=== PATIENT | female | born 1950 | race Caucasian/White ===

== ENCOUNTER 2016-11-12 06:39 | Day surgery (SDC) | payer OTHER ==
[~2016-11-12] VITALS: Ht 147.3 cm; Wt 68.2 kg
[~2016-11-12 06:39] MED LIST: SODIUM CHLORIDE 0.9% 1,000 ML IV ONE
[2016-11-12] MEDS ORDERED: SODIUM CHLORIDE 0.9% 1,000 ML IV ONE (07:06)
[2016-11-12] MEDS ORDERED: OMEP20 PO (07:38)
[2016-11-12] MEDS ORDERED: METHI5 PO (07:38)
[2016-11-12] MEDS ORDERED: ACET-48 PO (07:38)
[2016-11-12] MEDS ORDERED: LACT10SO8 PO (07:38)
[2016-11-12] MEDS ORDERED: FLUT16H NASAL (07:38)
[2016-11-12] MEDS ORDERED: BUDE10.2 IH (07:38)
[2016-11-12] MEDS ORDERED: MONT10TA21 PO (07:38)
[2016-11-12] MEDS ORDERED: IPRA4AER IH (07:38)
[2016-11-12] MEDS ORDERED: FentaNYL CITRATE-PF 100 MCG/2 ML VIAL ONE (07:46)
[2016-11-12] MEDS ORDERED: MIDAZOLAM HCL 2 MG/2 ML VIAL ONE (07:46)
[2016-11-12] MEDS ORDERED: MethylPREDNISolone SOD SUCC 125 MG/2 ML VIAL IVP ONE (08:45)
[2016-11-12] MEDS ORDERED: MethylPREDNISolone SOD SUCC 125 MG/2 ML VIAL ONE (09:14)
[2016-11-12] MEDS ORDERED: LIDOCAINE HCL 4% 50 ML SOLUTION TP ONE (16:45)
[2016-11-12] MEDS ORDERED: LIDOCAINE HCL 2% 30 ML JELLY TP ONE (16:45)
[2016-11-12] MEDS ORDERED: BENZOCAINE 20% 50 MCG/SPRAY 57 GM TP ONE (16:45)
[2016-11-12] MEDS ORDERED: OXYGEN THERAPY IH SCH (20:00)
== END 2016-11-12 10:40 | disposition home or self-care (01) ==
LOC: SURGERY 06:39
PROVIDERS: ATTEND Internal Medicine Critical Care Medicine
DX: J38.4 Edema of larynx (principal); B37.0 Candidal stomatitis; J45.909 Unspecified asthma, uncomplicated; D64.9 Anemia, unspecified
CPT/HCPCS: 31623; 31624; 71010; 87015 ×2; 87070; 87101; 87205; 87220; 88108; 88312; J2250; J2930; J3010; J7030

== ENCOUNTER 2017-09-30 06:24 | Day surgery (SDC) | payer OTHER ==
[~2017-09-30] VITALS: Ht 147.3 cm; Wt 80.0 kg
[~2017-09-30 06:24] MED LIST changes: +ACET-48 PO; +BUDE10.2 IH; +FLUT16H NASAL; +IPRA4AER IH; +LACT10SO8 PO; +METHI5 PO; +MONT10TA21 PO; +OMEP20 PO; -SODIUM CHLORIDE 0.9% 1,000 ML IV ONE
[2017-09-30] MEDS ORDERED: LIDOCAINE HCL 2% 30 ML JELLY TP ONE (06:25)
[2017-09-30] MEDS ORDERED: ALBUTEROL SULFATE 2.5 MG/0.5 ML NEB SOLUTION NEB ONE (06:25)
[2017-09-30] MEDS ORDERED: BENZOCAINE 20% 50 MCG/SPRAY 57 GM TP ONE (06:25)
[2017-09-30] MEDS ORDERED: SODIUM CHLORIDE 0.9% 1,000 ML IV ONE ×2 (07:30→07:55)
[2017-09-30] MEDS ORDERED: FentaNYL CITRATE-PF 100 MCG/2 ML VIAL ONE (07:54)
[2017-09-30] MEDS ORDERED: MIDAZOLAM HCL 2 MG/2 ML VIAL ONE (07:54)
[2017-09-30] MEDS ORDERED: MethylPREDNISolone SOD SUCC 125 MG/2 ML VIAL IVP ONE (09:15)
[2017-09-30] MEDS ORDERED: MethylPREDNISolone SOD SUCC 125 MG/2 ML VIAL ONE (09:51)
[2017-09-30] MEDS ORDERED: OXYGEN THERAPY IH SCH (20:00)
== END 2017-09-30 10:35 | disposition home or self-care (01) ==
LOC: SURGERY 06:24
PROVIDERS: ATTEND Internal Medicine Critical Care Medicine
DX: J38.4 Edema of larynx (principal); B37.0 Candidal stomatitis; D64.9 Anemia, unspecified; J45.909 Unspecified asthma, uncomplicated; Z79.52 Long term (current) use of systemic steroids
CPT/HCPCS: 31623; 31624; 87015; 87070; 87101; 87205; 87206; 87220; 88108; 88184; 88185; 88312; J2250; J2930; J3010; J7030